=== PATIENT | male | born 1985 | race Caucasian/White ===

== ENCOUNTER 2017-07-06 18:45 | Emergency (ER) | payer MEDICAID, OTHER ==
[~2017-07-06] VITALS: Ht 165.1 cm; Wt 72.5 kg
[~2017-07-06 18:45] MED LIST: CITA20TA4 PO; CLON2TAB PO; LISD40 PO; VENTAER INH; ZOLP10TA3 PO
[2017-07-06 19:08] VITALS: BP 136/77; PULSE 81; RESP 16; TEMP 97.9; O2SAT 99
[2017-07-06] MEDS ORDERED: LISD40 PO (19:21)
[2017-07-06] MEDS ORDERED: TETANUS/DIPHTHERIA TOXOID ADULT 0.5 ML VIAL IM ONE (20:00)
[2017-07-06] MEDS ORDERED: LIDOCAINE HCL 1% 50 ML VIAL INFIL ONE (20:00)
[2017-07-06] MEDS ORDERED: BUPIVACAINE HCL PF 0.5% 10 ML VIAL INFIL ONE (20:00)
--- NOTE | 2017-07-06 20:05 | PD ---
HPI Chief Complaint: Laceration/Skin Injury Time Seen by Provider: 19:49 Travel History International Travel<30 days: No Contact w/Intl Traveler<30days: No Traveled to known affect area: No History of Present Illness HPI Patient comes in for evaluation of a laceration to his left hand fourth digit that occurred while he was cleaning a wild boar. Patient states that he wrapped it and came to the emergency department. Patient denies doing anything else for this. Patient reports tenderness around site of the laceration without radiation. Pain is worse to palpation. Not palpating makes the pain better. Patient is right-hand dominant. Patient's tetanus shot is not up-to- date. PFSH Past Medical History ADHD: Yes Tetanus Vaccination: > 5 Years Past Surgical History Surgical History: No Previous Surgery Social History Alcohol Use: No Tobacco Use: No Substance Use: No Allergies-Medications (Allergen,Severity, Reaction): Coded Allergies: amoxicillin (Unverified Allergy, Unknown, Rash, 07/06/17) Sulfa (Sulfonamide Antibiotics) (Unverified Adverse Reaction, Intermediate , Rash, 07/06/17) Reported Meds & Prescriptions Reported Meds & Active Scripts Active Doxycycline Hyclate 100 Mg Cap 100 Mg PO BID Reported Vyvanse (Lisdexamfetamine Dimesylate) 40 Mg Cap 40 Mg PO DAILY Review of Systems Except as stated in HPI: all other systems reviewed are Neg Physical Exam Narrative GENERAL: Well-developed, well nourished, in no acute distress, and non-ill appearing. SKIN: Laceration noted over the medial dorsal aspect left hand fourth digit. There is no tendon involvement. No foreign body. No crepitus. Patient has full range of motion. Neurovascularly intact distally. HEAD: Atraumatic. Normocephalic. EYES: Pupils equal and round. EOMI. No scleral icterus. No injection or drainage. ENT: No nasal bleeding or discharge. Mucous membranes pink and moist. NECK: Trachea midline. Supple. No nuclear rigidity. RESPIRATORY: No accessory muscle use. No respiratory distress. MUSCULOSKELETAL: No obvious deformities. No clubbing. No cyanosis. No edema. Full range of motion. NEUROLOGICAL: Awake and alert. No obvious cranial nerve deficits. Motor grossly within normal limits. Normal speech. PSYCHIATRIC: Appropriate mood and affect; insight and judgment normal. Data Data Last Documented VS Vital Signs Date Time Temp Pulse Resp B/P (MAP) Pulse Ox O2 Delivery O2 Flow Rate FiO2 07/06/17 21:05 07/06/17 19:08 97.9 81 16 99 Room Air Orders Orders Tetanus/Diphtheria Tox Adult (Tetanus/Di (07/06/17 20:00) Bupivacaine Pf 0.5% Inj (Marcaine Pf 0.5 (07/06/17 20:00) Lidocaine 1% Inj (50 Ml) (Xylocaine 1% I (07/06/17 20:00) Ed Discharge Order (07/06/17 20:54) MDM Medical Decision Making Medical Screen Exam Complete: Yes Emergency Medical Condition: Yes Differential Diagnosis Laceration, abrasion, contusion, tendon injury Narrative Course The patient suffered laceration to the finger. There was no evidence to suggest foreign bodies by history and exam. Visual and tactile exams were unremarkable. There was no evidence of neurovascular injury. The patient had a normal distal vascular exam, and had full normal motor and sensory exams. There was also no evidence or tendon injury, with normal distal full range of motions, flexion, extension, abduction, adduction and opponens. There was no evidence of local joint space involvement at this time. The patient was irrigated with copious sterile normal saline and primary repair was performed. Please see procedure note. The patient was given signs and symptom warnings for infection, such as increasing pain, redness, swelling, associated heat, pus or fever. The patient was warned of possible unseen foreign body and instructed to return immediately if signs or symptoms develop. The patient was given instructions for timely follow up. The patient agreed with plan of care. Patient in no obvious distress upon re-evaluation. Patient was asked if they wanted to speak to my attending, which the patient did not wish to do at this time. Any questions/concerns in reference to patient diagnosis/condition discussed and clarified prior to patient's discharge. Reinforced sheer importance of close follow up with patient's primary physician or primary care clinic. Instructed patient to return to ED immediately, if symptoms return/ worsen. Patient showed understanding of above instructions. Further instructions and recommendations were detailed in discharge paperwork. Patient ambulated without difficulty out of ED at discharge. Procedures Procedure Narrative LACERATION REPAIR LOCATION: Left hand fourth digit LENGTH: Approximately 3 cm in total length NUMBER OF STITCHES/GLENDA: 4 REPAIR: Verbal consent was obtained. The area of the laceration was cleaned and prepped. Digital block was performed using a mixture of Marcaine without epi and lidocaine without epi. The wound was copiously irrigated and explored without evidence of foreign body, bony involvement, ligament injury, tendon injury, or neurovascular injury. The wound was closed using 4-0 Vicryl. This was a single layer repair. A sterile dressing was applied by nurse. The patient was advised to keep the affected area as clean and dry as possible using soap and water. There were no complications. Patient tolerated the procedure well. Diagnosis Primary Impression: Finger laceration Qualified Codes: S61.215A - Laceration without foreign body of left ring finger without damage to nail, initial encounter Patient Instructions: Care For Your Absorbable Stitches (ED), Finger Laceration (ED), General Instructions Additional Instructions: Follow-up with your primary care physician. Take all medication as prescribed. Keep wound dry and clean as possible using soap and water. Use Neosporin to promote healing. Do not soak or submerge wound. Return to the emergency department if symptoms get worse. Med/Other Pt SpecificInfo: Prescription(s) given Scripts Doxycycline Hyclate (Doxycycline Hyclate) 100 Mg Cap 100 MG PO BID for Infection, #20 CAP 0 Refills Prov: Jacques Platt MD 07/06/17 Disposition: 01 DISCHARGE HOME Condition: Stable Stevenson Mccann Jul 06, 2017 20:05
[2017-07-06] MEDS ORDERED: DOXY100C PO (20:54)
== END 2017-07-06 21:09 | disposition home or self-care (01) ==
LOC: NEPD 18:45
DX: S61.215A Laceration without foreign body of left ring finger without damage to nail, initial encounter (principal); W45.8XXA Other foreign body or object entering through skin, initial encounter; Y93.89 Activity, other specified; Z23 Encounter for immunization
CPT/HCPCS: 12002; 90471; 90714